=== PATIENT | female | born 1960 | race Caucasian/White ===

== ENCOUNTER 2024-05-26 07:44 | Inpatient (IN) | payer MEDICAID ==
[~2024-05-26] VITALS: Ht 167.6 cm; Wt 54.5 kg
[2024-05-26] MEDS: aspirin 81mg tab.chew PO ONE (08:01)
[2024-05-26 08:14] LABS: BASOPHILS # (AUTO) 0.1 X10'3 (0-0.2); BASOPHILS % (AUTO) 0.9 % (0-1); EOSINOPHILS # (AUTO) 0.1 X10'3 (0-0.9); EOSINOPHILS % (AUTO) 1.2 % (0-6); HEMATOCRIT 44.3 % (35.0-45.0); LYMPHOCYTES # (AUTO) 1.5 X10'3 (1.1-4.8); LYMPHOCYTES % (AUTO) 20.6 % (21-51); MEAN CORPUSCULAR HEMOGLOBIN 30.3 PG (27.0-31.0); MEAN CORPUSCULAR HGB CONC 33.9 g/dL (33.0-36.5); MEAN CORPUSCULAR VOLUME 89.2 FL (78-98); MEAN PLATELET VOLUME 8.8 FL (7.4-10.4); MONOCYTES # (AUTO) 0.7 X10'3 (0-0.9); MONOCYTES % (AUTO) 10.4 % (2-12); NEUTROPHILS # (AUTO) 4.7 X10'3 (1.8-7.7); NEUTROPHILS % (AUTO) 66.9 % (42-75); PLATELET COUNT 268 X10'3 (140-440); RED BLOOD COUNT 4.97 X10'6 (4.20-5.60); RED CELL DISTRIBUTION WIDTH 13.5 % (11.5-14.5); WHITE BLOOD COUNT 7.1 X10'3 (4.5-11.0)
[2024-05-26 08:40] LABS: ALBUMIN 3.8 G/DL (3.4-5.0); ANION GAP 12 (8-16); BLOOD UREA NITROGEN 10 MG/DL (7-18); BUN/CREATININE RATIO 8.3 (10.0-20.0); CALCIUM 8.6 MG/DL (8.5-10.1); CHLORIDE 102 MMOL/L (99-107); CREATININE 1.21 MG/DL (0.40-0.90); GLUCOSE 111 MG/DL (70-104); POTASSIUM 3.8 MMOL/L (3.5-5.1); PRO BRAIN NATRIURETIC PEPTIDE 151 PG/ML (0-125); SODIUM 139 MMOL/L (135-145); eCRCL 41 ML/MIN; eGFR 45 ML/MIN
[2024-05-26 09:13] LABS: APTT 26 SECONDS (22-32); PROTHROMBIN TIME 10.2 SECONDS (9.0-12.0)
[2024-05-26] MEDS ORDERED: ESTRADIOL TOP (16:52)
[2024-05-26] MEDS ORDERED: PROG100C11 PO (16:53)
[2024-05-26] MEDS ORDERED: acetaminophen 325mg tablet PO PRN (19:10)
[2024-05-26] MEDS ORDERED: magnesium Cl slow-release 64mg tablet PO PRN (19:10)
[2024-05-26] MEDS ORDERED: ondansetron/PF 4mg/2ml inj IV PRN (19:10)
[2024-05-26] MEDS ORDERED: aminophylline 500mg/20ml vial IV PRN (19:10)
[2024-05-26] MEDS ORDERED: metoprolol tartrate 1mg/ml inj IV PRN (19:10)
[2024-05-26] MEDS ORDERED: magnesium hydroxide 30ml (MOM) UD suspension PO PRN (19:10)
[2024-05-26] MEDS ORDERED: mag hydrox/Alum hydrox/simeth 30ml oral suspension PO PRN (19:10)
[2024-05-26] MEDS ORDERED: HYDROcodone/acetaminophen 5mg/325mg tablet PO PRN (19:10)
[2024-05-26] MEDS ORDERED: potassium Cl 20 mEq SR tablet PO PRN ×2 (19:10)
[2024-05-26] MEDS: PERFLUTREN PROTEIN-A MICROSPHR (Optison) 0.22 MG/ML 3ML VIAL IV ONE (19:10)
[2024-05-26] MEDS ORDERED: nitroGLYCERIN 0.4mg SUBLingual tab SL PRN ×2 (19:10→19:20)
[2024-05-26] MEDS ORDERED: magnesium sulf-water 2g/50mL 50 ML IV PRN (19:10)
[2024-05-26] MEDS ORDERED: morphine 2 MG/ML inj. syringe IV PRN (19:10)
[2024-05-26] MEDS ORDERED: potassium Cl 40MEQ/1/2NS 520ml 520 ML IV PRN (19:10)
[2024-05-26] MEDS ORDERED: magnesium sulf-water 4G/100mL 100 ML IV PRN (19:10)
[2024-05-26 19:20] VITALS: BP 115/77; PULSE 86; RESP 15; TEMP 97.1; O2SAT 100
[2024-05-26] MEDS ORDERED: ipratropium/albuterol 3ml nebule NEB PRN (19:25)
[2024-05-26 19:29] LABS: HEMOGLOBIN A1C 5.4 % (4.5-6.2)
[2024-05-26] MEDS: docusate sod 100mg capsule PO SCH (20:00)
[2024-05-26] MEDS: K and/or MAG REPLACEMENT MC SCH (20:00)
[2024-05-26] MEDS: normal saline 1000ml 1,000 ML IV SCH (22:00)
[2024-05-26] MEDS: nicotine 7mg patch - 24hr TD ONE (22:01)
[2024-05-26] MEDS: heparin, porcine 5000 units/ml vial SQ SCH (22:02)
[2024-05-26 23:37] VITALS: PULSE 80; RESP 14; O2SAT 100
[2024-05-27] VITALS (14 sets, daily range): BP systolic 110–137; BP diastolic 69–81; PULSE 70–121; RESP 14–19; TEMP 97.5–97.7; O2SAT 99–100
[2024-05-27 06:36] LABS: BASOPHILS # (AUTO) 0.1 X10'3 (0-0.2); BASOPHILS % (AUTO) 1.3 % (0-1); EOSINOPHILS # (AUTO) 0.1 X10'3 (0-0.9); EOSINOPHILS % (AUTO) 2.3 % (0-6); HEMATOCRIT 40.7 % (35.0-45.0); HEMOGLOBIN 13.8 g/dl (12.0-16.0); LYMPHOCYTES # (AUTO) 1.8 X10'3 (1.1-4.8); LYMPHOCYTES % (AUTO) 33.2 % (21-51); MEAN CORPUSCULAR HEMOGLOBIN 30.3 PG (27.0-31.0); MEAN CORPUSCULAR HGB CONC 33.8 g/dL (33.0-36.5); MEAN CORPUSCULAR VOLUME 89.6 FL (78-98); MONOCYTES # (AUTO) 0.7 X10'3 (0-0.9); MONOCYTES % (AUTO) 12.3 % (2-12); NEUTROPHILS # (AUTO) 2.7 X10'3 (1.8-7.7); NEUTROPHILS % (AUTO) 50.9 % (42-75); PLATELET COUNT 219 X10'3 (140-440); RED BLOOD COUNT 4.54 X10'6 (4.20-5.60); RED CELL DISTRIBUTION WIDTH 13.4 % (11.5-14.5); WHITE BLOOD COUNT 5.4 X10'3 (4.5-11.0)
[2024-05-27 06:49] LABS: ALBUMIN 3.3 G/DL (3.4-5.0); ANION GAP 6 (8-16); BLOOD UREA NITROGEN 9 MG/DL (7-18); BUN/CREATININE RATIO 9.3 (10.0-20.0); CALCIUM 8.4 MG/DL (8.5-10.1); CHLORIDE 107 MMOL/L (99-107); CHOLESTEROL 200 MG/DL (0-200); CREATININE 0.97 MG/DL (0.40-0.90); GLUCOSE 85 MG/DL (70-104); HDL CHOLESTEROL 66 MG/DL (35-60); LDL CHOLESTEROL 119 MG/DL (50-100); MAGNESIUM 1.7 MG/DL (1.5-2.4); POTASSIUM 4.2 MMOL/L (3.5-5.1); SODIUM 141 MMOL/L (135-145); TOTAL CARBON DIOXIDE 28.4 MMOL/L (24-32); TRIGLYCERIDES 63 MG/DL (20-135); eCRCL 51 ML/MIN; eGFR 58 ML/MIN
[2024-05-27] MEDS: aspirin 81mg, enteric-coated 1 TAB TABLET.DR PO SCH (07:22)
[2024-05-27] MEDS: regadenoson 0.4mg/5ml syringe IV PRN (11:03)
[2024-05-27] MEDS: atorvastatin 20mg tablet PO SCH (19:50)
[2024-05-27] MEDS ORDERED: PROGESTERONE 100 MG CAPSULE PO SCH (21:00)
[2024-05-27] MEDS: Melatonin 3mg tablet PO ONE (22:48)
[2024-05-27] MEDS: nicotine 7mg patch - 24hr TD ONE (22:49)
[2024-05-28] VITALS (17 sets, daily range): BP systolic 99–117; BP diastolic 64–76; PULSE 69–89; RESP 14–18; TEMP 97.3–98.4; O2SAT 97–100
[2024-05-28 06:09] LABS: BASOPHILS # (AUTO) 0.1 X10'3 (0-0.2); EOSINOPHILS # (AUTO) 0.1 X10'3 (0-0.9); MONOCYTES # (AUTO) 0.7 X10'3 (0-0.9); NEUTROPHILS # (AUTO) 2.9 X10'3 (1.8-7.7); RED BLOOD COUNT 4.48 X10'6 (4.20-5.60)
[2024-05-28 06:11] LABS: BASOPHILS % (AUTO) 1.2 % (0-1); EOSINOPHILS % (AUTO) 2.5 % (0-6); HEMATOCRIT 40.1 % (35.0-45.0); HEMOGLOBIN 13.5 g/dl (12.0-16.0); LYMPHOCYTES # (AUTO) 1.8 X10'3 (1.1-4.8); LYMPHOCYTES % (AUTO) 31.4 % (21-51); MEAN CORPUSCULAR HEMOGLOBIN 30.2 PG (27.0-31.0); MEAN CORPUSCULAR HGB CONC 33.7 g/dL (33.0-36.5); MEAN CORPUSCULAR VOLUME 89.6 FL (78-98); MEAN PLATELET VOLUME 8.8 FL (7.4-10.4); MONOCYTES % (AUTO) 13.1 % (2-12); NEUTROPHILS % (AUTO) 51.8 % (42-75); PLATELET COUNT 213 X10'3 (140-440); RED CELL DISTRIBUTION WIDTH 13.3 % (11.5-14.5); WHITE BLOOD COUNT 5.6 X10'3 (4.5-11.0)
[2024-05-28 06:15] LABS: ALBUMIN 3.3 G/DL (3.4-5.0); ANION GAP 5 (8-16); BLOOD UREA NITROGEN 8 MG/DL (7-18); BUN/CREATININE RATIO 8.2 (10.0-20.0); CALCIUM 8.7 MG/DL (8.5-10.1); CHLORIDE 106 MMOL/L (99-107); CREATININE 0.98 MG/DL (0.40-0.90); GLUCOSE 86 MG/DL (70-104); MAGNESIUM 1.7 MG/DL (1.5-2.4); POTASSIUM 4.1 MMOL/L (3.5-5.1); SODIUM 141 MMOL/L (135-145); TOTAL CARBON DIOXIDE 29.6 MMOL/L (24-32); eCRCL 51 ML/MIN; eGFR 57 ML/MIN
[2024-05-28] MEDS ORDERED: LIDOcaine 1% 30ml preserv. free vial ONE (11:50)
[2024-05-28] MEDS ORDERED: iohexol 350 MG/ML 50ML vial IV ONE (11:50)
[2024-05-28] MEDS ORDERED: iohexol 350MG/ML 100ml bottle IV ONE (11:50)
[2024-05-28] MEDS ORDERED: fentaNYL/PF 50MCG/1 ML 2ML syringe ONE (11:50)
[2024-05-28] MEDS ORDERED: midazolam 1 mg/ML 2ml injection ONE (11:50)
[2024-05-28] MEDS: metoprolol tartrate 12.5mg (1/2 tablet) PO SCH (12:05)
[2024-05-28] MEDS: LORazepam 1 MG tablet PO ONE (12:10)
[2024-05-28] MEDS: diphenhydrAMINE 25mg capsule PO ONE (12:10)
[2024-05-28] MEDS ORDERED: ondansetron/PF 4mg/2ml inj IV PRN (14:40)
[2024-05-28] MEDS ORDERED: nitroGLYCERIN 0.4mg SUBLingual tab SL PRN (14:40)
[2024-05-28] MEDS ORDERED: HYDROcodone/acetaminophen 5mg/325mg tablet PO PRN (14:40)
[2024-05-28] MEDS ORDERED: HYDROcodone/acetaminophen 10/325mg tab PO PRN (14:40)
[2024-05-28] MEDS ORDERED: OXAZEpam 15mg capsule PO PRN (14:40)
[2024-05-28] MEDS ORDERED: proCHLORperazine 10 MG/2 ml inj IV PRN (14:40)
[2024-05-28] MEDS: normal saline 1000ml 1,000 ML IV SCH (14:44)
[2024-05-28] MEDS: clopidogrel 75mg tablet PO SCH (17:50)
[2024-05-28] MEDS: metoprolol tartrate 25mg tablet PO SCH (20:53)
[2024-05-29] MEDS: nicotine 7mg patch - 24hr TD ONE (00:55)
[2024-05-29 02:00] VITALS: BP 114/68; PULSE 81; RESP 16; TEMP 97.2; O2SAT 98
[2024-05-29 04:10] LABS: BASOPHILS # (AUTO) 0.1 X10'3 (0-0.2); BASOPHILS % (AUTO) 0.9 % (0-1); EOSINOPHILS # (AUTO) 0.1 X10'3 (0-0.9); EOSINOPHILS % (AUTO) 2.7 % (0-6); HEMATOCRIT 39.9 % (35.0-45.0); HEMOGLOBIN 13.4 g/dl (12.0-16.0); LYMPHOCYTES # (AUTO) 1.2 X10'3 (1.1-4.8); MEAN CORPUSCULAR HEMOGLOBIN 30.2 PG (27.0-31.0); MEAN CORPUSCULAR HGB CONC 33.7 g/dL (33.0-36.5); MEAN CORPUSCULAR VOLUME 89.6 FL (78-98); MEAN PLATELET VOLUME 8.6 FL (7.4-10.4); MONOCYTES # (AUTO) 0.7 X10'3 (0-0.9); MONOCYTES % (AUTO) 12.5 % (2-12); NEUTROPHILS # (AUTO) 3.3 X10'3 (1.8-7.7); NEUTROPHILS % (AUTO) 60.9 % (42-75); PLATELET COUNT 188 X10'3 (140-440); RED BLOOD COUNT 4.46 X10'6 (4.20-5.60); RED CELL DISTRIBUTION WIDTH 13.7 % (11.5-14.5); WHITE BLOOD COUNT 5.4 X10'3 (4.5-11.0)
[2024-05-29 04:17] LABS: ALBUMIN 3.1 G/DL (3.4-5.0); ANION GAP 8 (8-16); BLOOD UREA NITROGEN 9 MG/DL (7-18); BUN/CREATININE RATIO 8.4 (10.0-20.0); CALCIUM 8.7 MG/DL (8.5-10.1); CHLORIDE 104 MMOL/L (99-107); CREATININE 1.07 MG/DL (0.40-0.90); GLUCOSE 86 MG/DL (70-104); MAGNESIUM 1.5 MG/DL (1.5-2.4); POTASSIUM 3.7 MMOL/L (3.5-5.1); SODIUM 139 MMOL/L (135-145); TOTAL CARBON DIOXIDE 27.5 MMOL/L (24-32); eCRCL 46 ML/MIN; eGFR 52 ML/MIN
[2024-05-29 06:00] VITALS: BP 102/64; PULSE 77; RESP 16; TEMP 98.4; O2SAT 98
[2024-05-29] MEDS: lisinopril 5mg tablet PO SCH (08:00)
[2024-05-29] MEDS ORDERED: ASPI-1071 PO (08:38)
[2024-05-29] MEDS ORDERED: CLOP75TA34 PO (08:38)
[2024-05-29] MEDS ORDERED: LOP25T PO (08:38)
[2024-05-29] MEDS ORDERED: NITR0.4T51 SL (08:38)
[2024-05-29] MEDS ORDERED: ATOR-2 PO (08:38)
[2024-05-29] MEDS ORDERED: LISI5TAB22 PO (08:38)
[2024-05-29] MEDS: normal saline 500ml IV soln 500 ML IV ONE (08:45)
[2024-05-29 10:00] VITALS: BP 111/76; PULSE 81; RESP 20; TEMP 98.5; O2SAT 99
[2024-05-29] MEDS ORDERED: atorvastatin 20mg tablet PO SCH (20:30)
[2024-05-30] MEDS ORDERED: ESTRADIOL 0.05 MG TOP SCH (08:00)
== END 2024-05-29 13:40 | disposition home or self-care (01) | DRG 191 ==
LOC: ER 07:45 → ED HOLD 08:54 → PCU 3S 19:13
PROVIDERS: ADMIT Family Medicine; ATTEND Family Medicine
PROC: 4A02XM4 Measurement of Cardiac Total Activity, External Approach (ICD-10-PCS; 2024-05-27)
PROC: 3E033HZ Introduction of Radioactive Substance into Peripheral Vein, Percutaneous Approach (ICD-10-PCS; 2024-05-27)
PROC: 4A023N7 Measurement of Cardiac Sampling and Pressure, Left Heart, Percutaneous Approach (ICD-10-PCS; principal; 2024-05-28)
PROC: B2111ZZ Fluoroscopy of Multiple Coronary Arteries using Low Osmolar Contrast (ICD-10-PCS; 2024-05-28)
PROC: B2151ZZ Fluoroscopy of Left Heart using Low Osmolar Contrast (ICD-10-PCS; 2024-05-28)
PROC: B41F1ZZ Fluoroscopy of Right Lower Extremity Arteries using Low Osmolar Contrast (ICD-10-PCS; 2024-05-28)
DX: I25.110 Atherosclerotic heart disease of native coronary artery with unstable angina pectoris (principal); N17.9 Acute kidney failure, unspecified; E78.5 Hyperlipidemia, unspecified; F17.210 Nicotine dependence, cigarettes, uncomplicated; N18.31 Chronic kidney disease, stage 3a; J42 Unspecified chronic bronchitis; Z87.442 Personal history of urinary calculi
CPT/HCPCS: 36415; 71045; 78452; 80048; 80061; 83036; 83735; 83880; 84484; 85025; 85610; 85730; 87081; 93005; 93017; 93306; 93458; 94760; 99152; 99153; 99285; A6258; A9500; C1760; G0378; J1644; J2003; J2250; J2785; J3010; J7030; J7040; Q0163; Q9967